=== PATIENT | male | born 1980 | race Caucasian/White ===

== ENCOUNTER 2016-08-05 16:20 | Emergency (ER) | payer SELFPAY ==
--- NOTE | 2016-08-05 16:52 | ED Physician Documentation ---
General Adult - HISTORIAN Historian: patient - HPI Stated Complaint: laceration to L hand Chief Complaint: Laceration/Recheck/Suture Onset: hours (1) Timing: still present Severity: mild Further Comments: yes (36 yo male presents with laceration to left palm, cut at work on metal. No other reported injuries. Pt is right handed. No numbness/ tingling distally) - ROS CONST: no problems - PAST HX Past History: none Allergies/Adverse Reactions: Allergies Allergy/AdvReac Type Severity Reaction Status Date / Time No Known Drug Allergies Allergy Unverified 04/27/13 14:21 Home Medications: Ambulatory Orders Medication Instructions Recorded NK [NK] 08/05/16 - SOCIAL HX Smoking History: non-smoker - FAMILY HX Family History: No - VITAL SIGNS Vital Signs: Vital Signs Temp Pulse Resp BP Pulse Ox 98.1 F 66 16 140/75 99 08/05/16 16:30 08/05/16 16:30 08/05/16 16:30 08/05/16 16:30 08/05/16 16:30 - REVIEWED ASSESSMENTS Nursing Assessment Reviewed: Yes Vitals Reviewed: Yes Procedures Wound Location: upper extremity (left hand) Wound's Depth, Shape: superficial Betadine Prep?: Yes Anesthesia: 1% Lidocaine Wound Repaired With: sutures Suture Size/Type: 5:0 Number of Sutures: 4 ED Results Lab/Radiology - Orders Orders: ED Orders Category Date Time Status Lidocaine 1% 5ml(IM or SUTURE) [Xylocaine] Med 08/05/16 17:30 Discontinued 50 mg .ROUTE .STK-MED ONE General Adult Physical Exam - PHYSICAL EXAM GENERAL APPEARANCE: no distress EENT: eye inspection normal, ENT inspection normal, DELORES NECK: normal inspection CVS: reg rate & rhythm ABDOMEN: soft, no organomegaly, normal bowel sounds EXTREMITIES: other (3cm laceration thenar eminence) NEURO: oriented X3 Discharge Clincal Impression: Hand laceration Qualifiers: Encounter type: initial encounter Laterality: left Qualified Code(s): S61.412A - Laceration without foreign body of left hand, initial encounter Referrals: Jennifer Enamorado MD [Primary Care Provider] - 2 Days Additional Instructions: Keep wound clean at all times Keep dressing placed in ER on for 24 hours Sutures out in 7-10 days Home Medications: Ambulatory Orders NK [NK] 08/05/16 Condition: Good Disposition: 01 HOME, SELF-CARE Decision to Admit: NO Decision Time: 17:52
[2016-08-05] MEDS ORDERED: Lidocaine 1% 5ml(IM or SUTURE)(PAIN CLINIC) ONE (17:30)
[2016-08-05] MEDS ORDERED: DIPH,PERTUSS(ACELL),TET VAC/PF 0.5 ML DISP.SYRIN IM ONE (18:05)
[2016-08-05 18:38] VITALS: BP 131/48
== END 2016-08-05 18:10 | disposition home or self-care (01) ==
LOC: ED 16:20
DX: S61.412A Laceration without foreign body of left hand, initial encounter (principal); W26.8XXA Contact with other sharp object(s), not elsewhere classified, initial encounter; Y99.0 Civilian activity done for income or pay
CPT/HCPCS: 12001; 90471; 90715; 99283; 99284